=== PATIENT | male | born 1940 | race Caucasian/White ===

== ENCOUNTER 2019-01-09 19:56 | Inpatient (IN) ==
[2019-01-09] MEDS ORDERED: 0.9 % Sodium Chloride 1,000 ML IVC ONE (22:27)
[2019-01-09 22:28] LABS: Basophils # 0.1 K/mcL (0.0-0.2); Basophils % 0.3 %; Eosinophils # 0.1 K/mcL (0.0-0.6); Eosinophils % 0.6 %; Hemoglobin 9.3 g/dL (12.9-16.9); Immature Granulocytes % 0.5 % (0-4); Lymphocytes # 1.3 K/mcL (0.6-4.6); Lymphocytes % 8.3 %; Mean Corpuscular HGB Conc 33.2 g/dL (31.6-35.5); Mean Corpuscular Hemoglobin 32.7 pg (28.0-33.3); Mean Corpuscular Volume 98.6 fL (83.0-100.0); Mean Platelet Volume 12.4 fL (9.4-12.4); Monocytes # 1.9 K/mcL (0.0-1.3); Monocytes % 12.7 %; Neutrophils # 11.8 K/mcL (1.6-8.9); Platelet Count 208 K/mcL (140-400); Red Blood Count 2.84 M/mcL (4.19-5.50); Red Cell Distribution Width 17.4 % (11.5-14.5); Segmented Neutrophils % 77.6 %; White Blood Count 15.2 K/mcL (4.3-11.1)
[2019-01-09 22:35] LABS: Prothrombin Time 11.5 Seconds (9.4-12.1)
[2019-01-09 22:38] LABS: Activated Partial Thrombo Time 28.3 Seconds (26.0-36.0)
[2019-01-09 23:00] LABS: Alanine Aminotransferase 6 Units/L (7-52); Albumin 3.7 g/dL (3.5-5.7); Albumin/Globulin Ratio 1.2 (1.1-2.2); Alkaline Phosphatase 80 Units/L (34-104); Aspartate Amino Transferase 69 Units/L (13-39); BUN/Creatinine Ratio 23 (6-26); Bilirubin,Direct 0.1 mg/dL (0.0-0.2); Bilirubin,Indirect 0.3 mg/dL (0.0-1.2); Bilirubin,Total 0.4 mg/dL (0.3-1.0); Blood Urea Nitrogen 70 mg/dL (8-23); C-Reactive Protein 50 mg/L (Less than 10); Calcium 9.8 mg/dL (8.6-10.3); Carbon Dioxide 15 mEq/L (23-29); Chloride 103 mEq/L (98-107); Ethanol < 10 mg/dL (Less than 10); Globulin 3.1 g/dL (2.4-3.5); Glucose 85 mg/dL (70-105); Osmolality,Calculated 298 (280-300); Potassium 3.6 mEq/L (3.5-5.1); Sodium 134 mEq/L (136-145); Total Protein 6.8 g/dL (6.4-8.9); eGFR For African Americans 24 (> 60); eGFR For Non-African Americans 20 (> 60)
[2019-01-09] MEDS ORDERED: Aspirin 325 MG TABLET PO ONE (23:54)
[2019-01-10 00:01] LABS: Bilirubin,Urine Negative (Negative); Blood,Urine Large (Negative); Clarity,Urine Clear (Clear); Color,Urine Yellow (Yellow); Glucose,Urine (UA) Normal (Normal); Ketones,Urine Negative (Negative); Leukocyte Esterase,Urine Negative (Negative); Nitrite,Urine Negative (Negative); Protein,Urine 100 mg/dL (Neg-Trace); Specific Gravity,Urine 1.009 (1.010-1.025); Urobilinogen,Urine Normal (Normal)
[2019-01-10 00:02] LABS: Bacteria,Urine None Seen per hpf (None-Few); Hyaline Casts,Urine None Seen per lpf (None-Few); Squamous Epithelial Cell,Urine Few per lpf (None-Few); WBC,Urine 0-3 per hpf (0-3)
[2019-01-10] MEDS ORDERED: 0.9 % Sodium Chloride 1,000 ML IVC ONE (00:11)
[2019-01-10] MEDS ORDERED: *HR* LORazepam 2 MG/ML VIAL IVP ONE (00:11)
[2019-01-10 01:16] LABS: Amphetamine Screen,Urine Negative ng/mL (Cutoff=1000); Barbiturate Screen,Urine Negative ng/mL (Cutoff=200); Benzodiazepines Screen,Urine Negative ng/mL (Cutoff=200); Cannabinoid Screen,Urine Negative ng/mL (Cutoff = 50); Cocaine Screen,Urine Negative ng/mL (Cutoff= 300); Opiate Screen,Urine Negative ng/mL (Cutoff=300); Phencyclidine Screen,Urine Negative ng/mL (Cutoff=25)
[2019-01-10] MEDS ORDERED: Vancomycin (wt based) 1,000 MG VIAL IV ONE (02:20)
[2019-01-10] MEDS ORDERED: cefTRIAXone 1,000 MG in Water for inj. (sterile) 10 ML IVP ONE (02:20)
[2019-01-10] MEDS ORDERED: Acyclovir 550 MG in D5% in Water 100 ML IVPB ONE (02:21)
[2019-01-10] MEDS ORDERED: Acyclovir 600 MG in D5% in Water 100 ML IVPB ONE (02:30)
[2019-01-10] MEDS ORDERED: 0.9 % Sodium Chloride 1,000 ML IVC SCH (05:45)
[2019-01-10 08:53] LABS: Basophils % 0.2 %; Eosinophils # 0.2 K/mcL (0.0-0.6); Eosinophils % 1.6 %; Hematocrit 25.5 % (37.5-50.1); Hemoglobin 8.2 g/dL (12.9-16.9); Immature Granulocytes % 0.5 % (0-4); Lymphocytes # 1.1 K/mcL (0.6-4.6); Lymphocytes % 8.8 %; Mean Corpuscular HGB Conc 32.2 g/dL (31.6-35.5); Mean Corpuscular Hemoglobin 32.3 pg (28.0-33.3); Mean Corpuscular Volume 100.4 fL (83.0-100.0); Mean Platelet Volume 12.3 fL (9.4-12.4); Monocytes # 1.8 K/mcL (0.0-1.3); Monocytes % 14.1 %; Neutrophils # 9.6 K/mcL (1.6-8.9); Platelet Count 187 K/mcL (140-400); Red Blood Count 2.54 M/mcL (4.19-5.50); Red Cell Distribution Width 17.5 % (11.5-14.5); Segmented Neutrophils % 74.8 %; White Blood Count 12.9 K/mcL (4.3-11.1)
[2019-01-10] MEDS ORDERED: Naloxone 0.4 MG/ML INJ IVP PRN (09:00)
[2019-01-10] MEDS ORDERED: DARBEPOETIN ALFA IN POLYSORBAT IJ SCH (09:15)
[2019-01-10] MEDS ORDERED: *HR* Metoprolol 5 MG/5 ML VIAL IVP PRN (09:19)
[2019-01-10 09:20] LABS: Magnesium 1.9 mg/dL (1.6-2.6); Phosphorous 3.3 mg/dL (2.7-4.5); Potassium 3.3 mEq/L (3.5-5.1); Troponin I 0.64 ng/mL (< 0.04)
[2019-01-10 10:06] LABS: Estimated Average Glucose 134 mg/dl
[2019-01-10] MEDS ORDERED: *HR* Heparin 5,000 UNIT/ML VIAL IVP ONE (10:26)
[2019-01-10] MEDS ORDERED: *HR* Heparin 5,000 UNIT/ML VIAL IVP PRN ×2 (10:26)
[2019-01-10] MEDS ORDERED: Heparin 25,000 UNIT/250 ML D5W 25,000 UNIT/250 ML IV.SOLN IVC SCH (10:30)
[2019-01-10 10:57] LABS: Hematocrit 25.4 % (37.5-50.1); Hemoglobin 8.2 g/dL (12.9-16.9); Mean Corpuscular HGB Conc 32.3 g/dL (31.6-35.5); Mean Corpuscular Hemoglobin 32.7 pg (28.0-33.3); Mean Corpuscular Volume 101.2 fL (83.0-100.0); Mean Platelet Volume 12.5 fL (9.4-12.4); Platelet Count 187 K/mcL (140-400); Red Blood Count 2.51 M/mcL (4.19-5.50); Red Cell Distribution Width 17.4 % (11.5-14.5); White Blood Count 12.9 K/mcL (4.3-11.1)
[2019-01-10 11:07] LABS: Heparin anti-factor XA UFH 0.04 IU/mL (0.30-0.70)
[2019-01-10 11:08] LABS: Prothrombin Time 11.3 Seconds (9.4-12.1)
[2019-01-10] MEDS: Thiamine (B-1) 100 MG TABLET PO SCH (12:08)
[2019-01-10] MEDS: hydrALAZINE 25 MG TABLET PO SCH ×2 (12:24→18:22)
[2019-01-10] MEDS ORDERED: Acyclovir 600 MG in D5% in Water 100 ML IVPB SCH (13:00)
[2019-01-10] MEDS ORDERED: Haloperidol Lactate 5 MG/ML VIAL IM ONE (14:38)
[2019-01-10] MEDS: 0.9 % Sodium Chloride 1,000 ML IVC SCH (18:22)
[2019-01-10] MEDS: Budesonide/Formoterol 80/4.5 1 PUFF INH IH SCH (20:04)
[2019-01-10 20:32] LABS: Basophils % 0.3 %; Eosinophils # 0.2 K/mcL (0.0-0.6); Eosinophils % 1.7 %; Hemoglobin 7.8 g/dL (12.9-16.9); Immature Granulocytes % 0.6 % (0-4); Lymphocytes % 8.2 %; Mean Corpuscular HGB Conc 32.5 g/dL (31.6-35.5); Mean Corpuscular Hemoglobin 33.6 pg (28.0-33.3); Mean Corpuscular Volume 103.4 fL (83.0-100.0); Mean Platelet Volume 12.8 fL (9.4-12.4); Monocytes # 1.6 K/mcL (0.0-1.3); Neutrophils # 9.3 K/mcL (1.6-8.9); Platelet Count 172 K/mcL (140-400); Red Blood Count 2.32 M/mcL (4.19-5.50); Red Cell Distribution Width 17.8 % (11.5-14.5); Segmented Neutrophils % 76.2 %; White Blood Count 12.3 K/mcL (4.3-11.1)
[2019-01-10 20:59] LABS: Adenovirus Not Detected (Not Detect); Bordetella Pertussis Not Detected (Not Detect); Chlamydophila pneumoniae Not Detected (Not Detect); Coronavirus 229E Not Detected (Not Detect); Coronavirus HKU1 Not Detected (Not Detect); Coronavirus NL63 Not Detected (Not Detect); Coronavirus OC43 Not Detected (Not Detect); Human Metapneumovirus Not Detected (Not Detect); Human Rhinovirus/Enterovirus Not Detected (Not Detect); Influenza A Subtype 2009 H1 Not Detected (Not Detect); Influenza A Untypeable Not Detected (Not Detect); Influenza B Not Detected (Not Detect); Mycoplasma pneumoniae Not Detected (Not Detect); Parainfluenza Virus 1 Not Detected (Not Detect); Parainfluenza Virus 2 Not Detected (Not Detect); Parainfluenza Virus 3 Not Detected (Not Detect); Parainfluenza Virus 4 Not Detected (Not Detect); Respiratory Syncytial Virus Not Detected (Not Detect)
[2019-01-10] MEDS: Aspirin Enteric Coated 81 MG Tablet PO SCH (21:53)
[2019-01-11 04:08] LABS: White Blood Count 12.5 K/mcL (4.3-11.1)
[2019-01-11 04:09] LABS: Albumin 2.9 g/dL (3.5-5.7); Albumin/Globulin Ratio 1.1 (1.1-2.2); Basophils # 0.1 K/mcL (0.0-0.2); Basophils % 0.4 %; Bilirubin,Total 0.4 mg/dL (0.3-1.0); Calcium 8.9 mg/dL (8.6-10.3); Chol/HDL Ratio 2.9 (0-4.9); Eosinophils # 0.2 K/mcL (0.0-0.6); Eosinophils % 1.7 %; Globulin 2.6 g/dL (2.4-3.5); Hemoglobin 7.6 g/dL (12.9-16.9); Immature Granulocytes % 0.4 % (0-4); Lymphocytes # 0.9 K/mcL (0.6-4.6); Lymphocytes % 7.4 %; Magnesium 1.7 mg/dL (1.6-2.6); Mean Corpuscular HGB Conc 31.7 g/dL (31.6-35.5); Mean Corpuscular Hemoglobin 32.2 pg (28.0-33.3); Mean Corpuscular Volume 101.7 fL (83.0-100.0); Mean Platelet Volume 12.9 fL (9.4-12.4); Monocytes # 1.3 K/mcL (0.0-1.3); Monocytes % 10.7 %; Neutrophils # 9.9 K/mcL (1.6-8.9); Phosphorous 3.3 mg/dL (2.7-4.5); Platelet Count 175 K/mcL (140-400); Red Blood Count 2.36 M/mcL (4.19-5.50); Red Cell Distribution Width 17.5 % (11.5-14.5); Segmented Neutrophils % 79.4 %; Total Protein 5.5 g/dL (6.4-8.9)
[2019-01-11 04:10] LABS: % Iron Saturation 14 % (20-55); Iron 28 mcg/dL (65-175); Transferrin 140 mg/dL (203-362)
[2019-01-11 04:19] LABS: INR 1.1; Prothrombin Time 12.7 Seconds (9.4-12.1)
[2019-01-11 04:31] LABS: Ferritin > 1500 ng/mL (20-250)
[2019-01-11] MEDS: hydrALAZINE 25 MG TABLET PO SCH ×2 (05:44→16:57)
[2019-01-11] MEDS: 0.9 % Sodium Chloride 1,000 ML IVC SCH ×2 (06:50→19:55)
[2019-01-11] MEDS: Budesonide/Formoterol 80/4.5 1 PUFF INH IH SCH ×2 (07:25→20:00)
[2019-01-11 08:56] LABS: Troponin I 1.3 ng/mL (< 0.04)
[2019-01-11] MEDS: amLODIPine 5 MG TABLET PO SCH (10:18)
[2019-01-11] MEDS: Thiamine (B-1) 100 MG TABLET PO SCH (10:18)
[2019-01-11 11:44] LABS: Basophils # 0.1 K/mcL (0.0-0.2); Basophils % 0.4 %; Eosinophils # 0.3 K/mcL (0.0-0.6); Eosinophils % 2.2 %; Hematocrit 27.9 % (37.5-50.1); Hemoglobin 8.9 g/dL (12.9-16.9); Immature Granulocytes % 0.6 % (0-4); Lymphocytes # 1.2 K/mcL (0.6-4.6); Lymphocytes % 8.8 %; Mean Corpuscular HGB Conc 31.9 g/dL (31.6-35.5); Mean Corpuscular Hemoglobin 32.2 pg (28.0-33.3); Mean Corpuscular Volume 101.1 fL (83.0-100.0); Mean Platelet Volume 12.5 fL (9.4-12.4); Monocytes # 1.4 K/mcL (0.0-1.3); Monocytes % 10.2 %; Neutrophils # 10.6 K/mcL (1.6-8.9); Platelet Count 190 K/mcL (140-400); Red Blood Count 2.76 M/mcL (4.19-5.50); Red Cell Distribution Width 18.1 % (11.5-14.5); Segmented Neutrophils % 77.8 %; White Blood Count 13.6 K/mcL (4.3-11.1)
[2019-01-11] MEDS ORDERED: Acyclovir 600 MG in D5% in Water 100 ML IVPB SCH (14:00)
[2019-01-11] MEDS: *HR* Heparin 5,000 UNIT/ML VIAL SQ SCH (16:58)
[2019-01-11] MEDS: Aspirin Enteric Coated 81 MG Tablet PO SCH (19:54)
[2019-01-12 02:52] LABS: Basophils % 0.2 %; Eosinophils # 0.3 K/mcL (0.0-0.6); Eosinophils % 2.7 %; Hematocrit 22.6 % (37.5-50.1); Immature Granulocytes % 0.6 % (0-4); Lymphocytes # 1.5 K/mcL (0.6-4.6); Lymphocytes % 11.9 %; Mean Corpuscular HGB Conc 31.9 g/dL (31.6-35.5); Mean Corpuscular Hemoglobin 32.3 pg (28.0-33.3); Mean Corpuscular Volume 101.3 fL (83.0-100.0); Mean Platelet Volume 13.1 fL (9.4-12.4); Monocytes # 1.5 K/mcL (0.0-1.3); Monocytes % 11.7 %; Neutrophils # 9.3 K/mcL (1.6-8.9); Platelet Count 161 K/mcL (140-400); Red Blood Count 2.23 M/mcL (4.19-5.50); Red Cell Distribution Width 17.4 % (11.5-14.5); Segmented Neutrophils % 72.9 %; White Blood Count 12.7 K/mcL (4.3-11.1)
[2019-01-12 03:04] LABS: Hemoglobin 7.2 g/dL (12.9-16.9)
[2019-01-12 03:10] LABS: Calcium 8.8 mg/dL (8.6-10.3); Potassium 3.6 mEq/L (3.5-5.1)
[2019-01-12] MEDS: hydrALAZINE 25 MG TABLET PO SCH ×2 (05:31→17:10)
[2019-01-12] MEDS: *HR* Heparin 5,000 UNIT/ML VIAL SQ SCH ×2 (05:31→17:09)
[2019-01-12] MEDS: Budesonide/Formoterol 80/4.5 1 PUFF INH IH SCH ×2 (07:22→20:17)
[2019-01-12] MEDS: Thiamine (B-1) 100 MG TABLET PO SCH (08:46)
[2019-01-12] MEDS: amLODIPine 5 MG TABLET PO SCH (08:48)
[2019-01-12] MEDS: 0.9 % Sodium Chloride 1,000 ML IVC SCH (10:06)
[2019-01-12] MEDS ORDERED: 0.9 % Sodium Chloride 1,000 ML IVC SCH (10:10)
[2019-01-12 11:03] LABS: Hematocrit 25.9 % (37.5-50.1); Hemoglobin 8.2 g/dL (12.9-16.9)
[2019-01-12] MEDS: Aspirin Enteric Coated 81 MG Tablet PO SCH (19:43)
[2019-01-13 05:01] LABS: Basophils % 0.4 %; Eosinophils # 0.5 K/mcL (0.0-0.6); Eosinophils % 4.6 %; Hematocrit 25.6 % (37.5-50.1); Hemoglobin 8.1 g/dL (12.9-16.9); Immature Granulocytes % 0.6 % (0-4); Lymphocytes # 1.6 K/mcL (0.6-4.6); Mean Corpuscular HGB Conc 31.6 g/dL (31.6-35.5); Mean Corpuscular Volume 101.2 fL (83.0-100.0); Mean Platelet Volume 12.9 fL (9.4-12.4); Monocytes # 1.2 K/mcL (0.0-1.3); Monocytes % 10.2 %; Nucleated Red Blood Cells 0.2 /100 WBC (0); Platelet Count 181 K/mcL (140-400); Red Blood Count 2.53 M/mcL (4.19-5.50); Red Cell Distribution Width 17.6 % (11.5-14.5); Segmented Neutrophils % 70.2 %; White Blood Count 11.3 K/mcL (4.3-11.1)
[2019-01-13 05:17] LABS: Calcium 9.6 mg/dL (8.6-10.3); Potassium 3.4 mEq/L (3.5-5.1)
[2019-01-13] MEDS: hydrALAZINE 25 MG TABLET PO SCH (05:49)
[2019-01-13] MEDS: *HR* Heparin 5,000 UNIT/ML VIAL SQ SCH (05:49)
[2019-01-13] MEDS: Budesonide/Formoterol 80/4.5 1 PUFF INH IH SCH (07:31)
[2019-01-13] MEDS: amLODIPine 5 MG TABLET PO SCH (10:03)
[2019-01-13] MEDS: Thiamine (B-1) 100 MG TABLET PO SCH (10:04)
[2019-01-13 11:30] VITALS: BP 148/76
[2019-01-13] MEDS ORDERED: Darbepoetin 100 MCG/0.5 ML SYRINGE SQ ONE (14:00)
[2019-01-13] MEDS ORDERED: FLU Vac QV 19-20 (6Month+)/PF 0.5 ML SYRINGE IM ONE (15:00)
[2019-01-13] MEDS ORDERED: hydrALAZINE 25 MG TABLET PO SCH (18:00)
[2019-01-15 11:23] LABS: HIV-1&2 Antibody & p24 Ag Nonreactive (Nonreactive)
[2019-01-15 13:46] LABS: Hepatitis C Virus Antibody Reactive (Nonreactive)
== END 2019-01-13 15:16 | disposition home or self-care (01) | DRG 682 ==
LOC: EMEROOARM 19:56 → 2NENU 19:56 → SUATTDRO 01-10 06:12 → OBSVTOIN 01-10 06:12 → 2NENU 01-10 06:38
PROVIDERS: ADMIT Internal Medicine; ATTEND Internal Medicine

== ENCOUNTER 2019-09-15 11:16 | Inpatient (IN) ==
[2019-09-15] MEDS ORDERED: Naloxone 0.4 MG/ML INJ IVP PRN (12:58)
[2019-09-15] MEDS: 0.9 % Sodium Chloride 1,000 ML IVC SCH (13:21)
[2019-09-15 14:36] LABS: INR 0.9; Prothrombin Time 10.5 Seconds (9.4-12.1)
[2019-09-15 14:39] LABS: Activated Partial Thrombo Time 30.8 Seconds (26.0-36.0); Basophils # 0.1 K/mcL (0.0-0.2); Eosinophils # 0.4 K/mcL (0.0-0.6); Eosinophils % 4.6 %; Hematocrit 32.6 % (37.5-50.1); Immature Granulocytes % 0.7 % (0-4); Lymphocytes # 2.3 K/mcL (0.6-4.6); Lymphocytes % 25.2 %; Mean Corpuscular HGB Conc 30.7 g/dL (31.6-35.5); Mean Corpuscular Hemoglobin 31.2 pg (28.0-33.3); Mean Corpuscular Volume 101.6 fL (83.0-100.0); Mean Platelet Volume 12.9 fL (9.4-12.4); Monocytes # 0.9 K/mcL (0.0-1.3); Monocytes % 9.6 %; Neutrophils # 5.3 K/mcL (1.6-8.9); Nucleated Red Blood Cells 0.7 /100 WBC (0); Platelet Count 212 K/mcL (140-400); Red Blood Count 3.21 M/mcL (4.19-5.50); Red Cell Distribution Width 16.5 % (11.5-14.5); Segmented Neutrophils % 58.9 %; White Blood Count 9.1 K/mcL (4.3-11.1)
[2019-09-15 15:02] LABS: Potassium 4.3 mEq/L (3.5-5.1)
[2019-09-15] MEDS: hydrALAZINE 25 MG TABLET PO PRN (16:27)
[2019-09-15] MEDS: Budesonide/Formoterol 80/4.5 1 PUFF INH IH SCH (22:11)
[2019-09-16] MEDS: hydrALAZINE 25 MG TABLET PO PRN (00:22)
[2019-09-16] MEDS: 0.9 % Sodium Chloride 1,000 ML IVC SCH ×3 (02:45→23:10)
[2019-09-16] MEDS ORDERED: Acetaminophen IV 1,000 MG/100 ML INFUS..BTL ONE (06:57)
[2019-09-16] MEDS ORDERED: *HR* Vasopressin 20 UNIT/ML VIAL ONE (06:57)
[2019-09-16] MEDS ORDERED: Heparin 1,000 UNITS/500 mL 500 ML ONE (06:59)
[2019-09-16] MEDS ORDERED: *HR* FentaNYL (PF) 100 MCG/2 ML VIAL ONE ×6 (07:02→12:06)
[2019-09-16] MEDS ORDERED: Dexamethasone 4 MG/ML VIAL ONE (07:03)
[2019-09-16] MEDS ORDERED: *HR* Phenylephrine 10 MG/ML VIAL ONE (07:03)
[2019-09-16] MEDS ORDERED: Ondansetron 4 MG/2 ML VIAL ONE (07:03)
[2019-09-16] MEDS ORDERED: *HR* Rocuronium Bromide 50 MG/5 ML VIAL ONE ×2 (07:03→10:07)
[2019-09-16] MEDS ORDERED: *HR* Propofol 200 MG/20 ML VIAL IVP ONE ×2 (07:03→12:12)
[2019-09-16] MEDS ORDERED: Lidocaine -MPF 2% 2 ML VIAL ONE (07:03)
[2019-09-16] MEDS ORDERED: Isovue-300 50ML VIAL ONE (07:16)
[2019-09-16] MEDS ORDERED: Vancomycin 1,000 MG VIAL ONE (07:16)
[2019-09-16] MEDS ORDERED: Heparin 1,000 UNITS/500 mL 1,500 ML ONE (07:16)
[2019-09-16] MEDS ORDERED: *HR* Succinylcholine 200 MG/10 ML VIAL IVP ONE (07:29)
[2019-09-16] MEDS ORDERED: *HR* Labetalol 20 MG/4 ML SYRINGE IVP PRN ×2 (07:33→13:31)
[2019-09-16] MEDS ORDERED: *HR* Promethazine 25 MG/ML VIAL IVP PRN ×2 (07:33→13:31)
[2019-09-16] MEDS ORDERED: *HR* HYDROmorphone PF 0.5 MG/0.5 ML SYRINGE IVP PRN ×2 (07:33→13:31)
[2019-09-16] MEDS ORDERED: Heparin 1,000 UNITS/500 mL 0 ML ONE (07:33)
[2019-09-16] MEDS ORDERED: *HR* OxyCODONE Immed Rel 5 MG TABLET PO PRN ×2 (07:33→13:31)
[2019-09-16] MEDS ORDERED: Ondansetron 4 MG/2 ML VIAL IVP ONE ×2 (07:33→13:31)
[2019-09-16] MEDS ORDERED: CeFAZolin 2 GM/120 ML BAG IVPB ONE (08:54)
[2019-09-16] MEDS ORDERED: Aspirin 81 MG TAB.CHEW PO SCH (09:00)
[2019-09-16] MEDS ORDERED: Finasteride 5 MG TABLET PO SCH (09:00)
[2019-09-16] MEDS ORDERED: calcitrioL 0.25 MCG CAPSULE PO SCH (09:00)
[2019-09-16] MEDS ORDERED: Isosorbide MONOnitrate (24 HR) 30 MG TAB.ER.24H PO SCH (09:00)
[2019-09-16] MEDS ORDERED: *HR* Heparin 5,000 UNIT/ML VIAL ONE ×2 (09:27→10:56)
[2019-09-16] MEDS ORDERED: EPHEDrine 50 MG/ML VIAL ONE (09:49)
[2019-09-16] MEDS ORDERED: Protamine Sulfate 50 MG/5 ML VIAL IVP ONE (10:03)
[2019-09-16] MEDS ORDERED: NiCARdipine 2.5 MG/10 ML Syringe IVPB ONE (10:37)
[2019-09-16] MEDS: Budesonide/Formoterol 80/4.5 1 PUFF INH IH SCH ×2 (11:20→19:59)
[2019-09-16] MEDS ORDERED: hydrALAZINE 25 MG TABLET PO PRN (13:31)
[2019-09-16] MEDS ORDERED: Ondansetron 4 MG/2 ML VIAL IVP PRN (13:31)
[2019-09-16] MEDS ORDERED: 0.9 % Sodium Chloride 1,000 ML IVC SCH (13:31)
[2019-09-16] MEDS ORDERED: Acetaminophen 325 MG TABLET PO PRN (13:31)
[2019-09-16] MEDS ORDERED: Naloxone 0.4 MG/ML INJ IVP PRN ×2 (13:31)
[2019-09-16] MEDS: CeFAZolin 2 GM/120 ML BAG IVPB SCH (16:05)
[2019-09-16] MEDS: *HR* HYDROcodone/Acet 5/325 mg TABLET PO PRN (17:37)
[2019-09-16] MEDS ORDERED: Acetaminophen IV 1,000 MG/100 ML INFUS..BTL IVPB ONE (22:00)
[2019-09-17] MEDS: CeFAZolin 2 GM/120 ML BAG IVPB SCH ×2 (00:50→07:33)
[2019-09-17] MEDS ORDERED: hydrOXYzine pamoate 25 MG CAPSULE PO ONE (03:36)
[2019-09-17 04:21] LABS: Basophils % 0.2 %; Eosinophils % 0.1 %; Hematocrit 25.4 % (37.5-50.1); Hemoglobin 7.9 g/dL (12.9-16.9); Immature Granulocytes % 0.6 % (0-4); Lymphocytes # 1.8 K/mcL (0.6-4.6); Lymphocytes % 14.2 %; Mean Corpuscular HGB Conc 31.1 g/dL (31.6-35.5); Mean Corpuscular Hemoglobin 32.1 pg (28.0-33.3); Mean Corpuscular Volume 103.3 fL (83.0-100.0); Monocytes # 1.6 K/mcL (0.0-1.3); Monocytes % 12.5 %; Neutrophils # 9.4 K/mcL (1.6-8.9); Nucleated Red Blood Cells 1.6 /100 WBC (0); Platelet Count 196 K/mcL (140-400); Red Blood Count 2.46 M/mcL (4.19-5.50); Red Cell Distribution Width 16.6 % (11.5-14.5); Segmented Neutrophils % 72.4 %
[2019-09-17 04:42] LABS: Potassium 4.7 mEq/L (3.5-5.1)
[2019-09-17] MEDS: calcitrioL 0.25 MCG CAPSULE PO SCH (07:31)
[2019-09-17] MEDS: Isosorbide MONOnitrate (24 HR) 30 MG TAB.ER.24H PO SCH (07:32)
[2019-09-17] MEDS: Finasteride 5 MG TABLET PO SCH (07:32)
[2019-09-17] MEDS: Aspirin 81 MG TAB.CHEW PO SCH (07:32)
[2019-09-17] MEDS: Budesonide/Formoterol 80/4.5 1 PUFF INH IH SCH ×2 (10:37→19:58)
[2019-09-17] MEDS: 0.9 % Sodium Chloride 1,000 ML IVC SCH (13:37)
[2019-09-17] MEDS: *HR* HYDROcodone/Acet 5/325 mg TABLET PO PRN (21:43)
[2019-09-18] MEDS ORDERED: Acetaminophen IV 1,000 MG/100 ML INFUS..BTL IVPB ONE (00:05)
[2019-09-18] MEDS ORDERED: hydrOXYzine pamoate 25 MG CAPSULE PO ONE (00:07)
[2019-09-18 03:10] LABS: Calcium 8.1 mg/dL (8.6-10.3); Potassium 3.8 mEq/L (3.5-5.1)
[2019-09-18] MEDS: Aspirin 81 MG TAB.CHEW PO SCH (07:15)
[2019-09-18] MEDS: calcitrioL 0.25 MCG CAPSULE PO SCH (07:15)
[2019-09-18] MEDS: Isosorbide MONOnitrate (24 HR) 30 MG TAB.ER.24H PO SCH (07:16)
[2019-09-18] MEDS: Finasteride 5 MG TABLET PO SCH (07:16)
[2019-09-18] MEDS: Budesonide/Formoterol 80/4.5 1 PUFF INH IH SCH ×2 (08:00→20:17)
[2019-09-18] MEDS: 0.9 % Sodium Chloride 1,000 ML IVC SCH (08:13)
[2019-09-18] MEDS ORDERED: polyethylene glycoL 3350 17 GM POWD.PACK PO PRN (10:21)
[2019-09-18 11:17] LABS: Bilirubin,Urine Negative (Negative); Blood,Urine Negative (Negative); Clarity,Urine Clear (Clear); Color,Urine Yellow (Yellow); Glucose,Urine (UA) 100 mg/dL (Normal); Ketones,Urine Negative (Negative); Leukocyte Esterase,Urine Negative (Negative); Nitrite,Urine Negative (Negative); Protein,Urine >=300 mg/dL (Neg-Trace); Specific Gravity,Urine 1.012 (1.010-1.025); Urobilinogen,Urine Normal (Normal)
[2019-09-18 11:20] LABS: Sodium, Urine 17.5 mEq/L
[2019-09-18 11:29] LABS: Bacteria,Urine None Seen per hpf (None-Few); Hyaline Casts,Urine None Seen per lpf (None-Few); RBC,Urine 0-3 per hpf (0-3); Squamous Epithelial Cell,Urine Many per lpf (None-Few); WBC,Urine 0-3 per hpf (0-3)
[2019-09-18 11:44] LABS: Basophils % 0.2 %; Eosinophils % 0.1 %; Hematocrit 26.2 % (37.5-50.1); Hemoglobin 8.2 g/dL (12.9-16.9); Immature Granulocytes % 0.8 % (0-4); Lymphocytes # 1.3 K/mcL (0.6-4.6); Lymphocytes % 6.3 %; Mean Corpuscular HGB Conc 31.3 g/dL (31.6-35.5); Mean Corpuscular Hemoglobin 32.4 pg (28.0-33.3); Mean Corpuscular Volume 103.6 fL (83.0-100.0); Mean Platelet Volume 12.9 fL (9.4-12.4); Monocytes # 1.8 K/mcL (0.0-1.3); Monocytes % 8.7 %; Nucleated Red Blood Cells 3.3 /100 WBC (0); Platelet Count 199 K/mcL (140-400); Red Blood Count 2.53 M/mcL (4.19-5.50); Red Cell Distribution Width 17.7 % (11.5-14.5); Segmented Neutrophils % 83.9 %
[2019-09-18 11:45] LABS: White Blood Count 20.2 K/mcL (4.3-11.1)
[2019-09-18] MEDS: *HR* HYDROcodone/Acet 5/325 mg TABLET PO PRN (13:48)
[2019-09-18] MEDS: Folic Acid 1 MG TABLET PO SCH (17:28)
[2019-09-18] MEDS: Thiamine (B-1) 100 MG TABLET PO SCH (17:28)
[2019-09-18] MEDS: *HR* LORazepam 2 MG/ML VIAL IVP PRN ×2 (17:28→18:39)
[2019-09-19] MEDS: 0.9 % Sodium Chloride 1,000 ML IVC SCH (03:26)
[2019-09-19 06:23] LABS: Hematocrit 25.1 % (37.5-50.1); Hemoglobin 7.7 g/dL (12.9-16.9); Mean Corpuscular HGB Conc 30.7 g/dL (31.6-35.5); Mean Corpuscular Hemoglobin 31.3 pg (28.0-33.3); Mean Platelet Volume 12.5 fL (9.4-12.4); Platelet Count 210 K/mcL (140-400); Red Blood Count 2.46 M/mcL (4.19-5.50); Red Cell Distribution Width 17.6 % (11.5-14.5); White Blood Count 16.6 K/mcL (4.3-11.1)
[2019-09-19 06:37] LABS: Calcium 8.7 mg/dL (8.6-10.3); Potassium 3.9 mEq/L (3.5-5.1)
[2019-09-19] MEDS: Folic Acid 1 MG TABLET PO SCH (07:41)
[2019-09-19] MEDS: Thiamine (B-1) 100 MG TABLET PO SCH (07:41)
[2019-09-19] MEDS: calcitrioL 0.25 MCG CAPSULE PO SCH (07:41)
[2019-09-19] MEDS: Aspirin 81 MG TAB.CHEW PO SCH (07:41)
[2019-09-19] MEDS: Finasteride 5 MG TABLET PO SCH (07:41)
[2019-09-19] MEDS: Isosorbide MONOnitrate (24 HR) 30 MG TAB.ER.24H PO SCH (07:41)
[2019-09-19] MEDS: Budesonide/Formoterol 80/4.5 1 PUFF INH IH SCH (08:01)
[2019-09-19 16:40] VITALS: BP 162/95
== END 2019-09-19 18:17 | DRG 253 ==
LOC: 2NNU
PROVIDERS: ADMIT Surgery Vascular Surgery; ATTEND Surgery Vascular Surgery

== ENCOUNTER 2020-11-18 17:34 | Observation (INO) ==
[2020-11-18 19:00] LABS: Basophils # 0.1 K/mcL (0.0-0.2); Basophils % 0.8 %; Eosinophils # 0.9 K/mcL (0.0-0.6); Eosinophils % 8.7 %; Hematocrit 28.2 % (37.5-50.1); Hemoglobin 9.1 g/dL (12.9-16.9); Immature Granulocytes % 0.4 % (0-4); Lymphocytes # 2.2 K/mcL (0.6-4.6); Lymphocytes % 22.3 %; Mean Corpuscular HGB Conc 32.3 g/dL (31.6-35.5); Mean Corpuscular Hemoglobin 31.6 pg (28.0-33.3); Mean Corpuscular Volume 97.9 fL (83.0-100.0); Mean Platelet Volume 12.7 fL (9.4-12.4); Neutrophils # 5.8 K/mcL (1.6-8.9); Platelet Count 199 K/mcL (140-400); Red Blood Count 2.88 M/mcL (4.19-5.50); Red Cell Distribution Width 17.1 % (11.5-14.5); Segmented Neutrophils % 57.8 %
[2020-11-18 19:20] LABS: BUN/Creatinine Ratio 17 (6-26); Blood Urea Nitrogen 69 mg/dL (8-23); Calcium 11.5 mg/dL (8.6-10.3); Carbon Dioxide 21 mEq/L (23-29); Chloride 106 mEq/L (98-107); Glucose 93 mg/dL (70-105); Osmolality,Calculated 302 (280-300); Potassium 4.8 mEq/L (3.5-5.1); Sodium 136 mEq/L (136-145); Troponin I < 0.03 ng/mL (< 0.04); eGFR For African Americans 17 (> 60); eGFR For Non-African Americans 14 (> 60)
[2020-11-18 19:35] LABS: Activated Partial Thrombo Time 25.8 Seconds (26.0-36.0)
[2020-11-18] MEDS ORDERED: Aspirin 325 MG TABLET PO ONE ×2 (20:37→20:56)
[2020-11-18] MEDS ORDERED: Aspirin 81 MG TAB.CHEW PO ONE (21:05)
[2020-11-19] MEDS ORDERED: Perflutren Lipid Microsphere 1.3 ML in 0.9 % Sodium Chloride 8.7 ML IVP PRN (00:38)
[2020-11-19] MEDS ORDERED: Naloxone 0.4 MG/ML INJ IVP PRN (00:39)
[2020-11-19] MEDS ORDERED: Ondansetron 4 MG/2 ML VIAL IVP PRN (00:39)
[2020-11-19] MEDS ORDERED: Nitroglycerin 0.4 MG TAB.SUBL SL PRN (00:40)
[2020-11-19] MEDS ORDERED: Morphine Sulfate 2 MG/ML SYRINGE IVP PRN (00:41)
[2020-11-19 01:47] LABS: Amphetamine Screen,Urine Negative ng/mL (Cutoff=1000); Barbiturate Screen,Urine Negative ng/mL (Cutoff=200); Benzodiazepines Screen,Urine Negative ng/mL (Cutoff=200); Cannabinoid Screen,Urine Negative ng/mL (Cutoff = 50); Cocaine Screen,Urine Negative ng/mL (Cutoff= 300); Opiate Screen,Urine Negative ng/mL (Cutoff=300); Phencyclidine Screen,Urine Negative ng/mL (Cutoff=25)
[2020-11-19 01:58] LABS: Hematocrit 28.9 % (37.5-50.1); Hemoglobin 9.4 g/dL (12.9-16.9); Mean Corpuscular HGB Conc 32.5 g/dL (31.6-35.5); Mean Corpuscular Hemoglobin 31.6 pg (28.0-33.3); Mean Corpuscular Volume 97.3 fL (83.0-100.0); Mean Platelet Volume 12.5 fL (9.4-12.4); Platelet Count 204 K/mcL (140-400); Red Blood Count 2.97 M/mcL (4.19-5.50); Red Cell Distribution Width 17.2 % (11.5-14.5); White Blood Count 10.3 K/mcL (4.3-11.1)
[2020-11-19 02:16] LABS: BUN/Creatinine Ratio 17 (6-26); Blood Urea Nitrogen 70 mg/dL (8-23); Calcium 11.3 mg/dL (8.6-10.3); Carbon Dioxide 21 mEq/L (23-29); Chloride 106 mEq/L (98-107); Chol/HDL Ratio 3.1 (0-4.9); Cholesterol 129 mg/dL (< 200); Ethanol < 10 mg/dL (Less than 10); Glucose 104 mg/dL (70-105); HDL Cholesterol 42 mg/dL (40-59); LDL Cholesterol,Calculated 67 mg/dL (< 100); Magnesium 2.3 mg/dL (1.6-2.6); Osmolality,Calculated 307 (280-300); Potassium 4.2 mEq/L (3.5-5.1); Prothrombin Time 11.1 Seconds (9.4-12.1); Sodium 138 mEq/L (136-145); Triglycerides 100 mg/dL (< 150); eGFR For African Americans 17 (> 60); eGFR For Non-African Americans 14 (> 60)
[2020-11-19 02:19] LABS: Activated Partial Thrombo Time 26.2 Seconds (26.0-36.0)
[2020-11-19 02:22] LABS: % Iron Saturation 39 % (20-55); Iron 105 mcg/dL (65-175); Transferrin 194 mg/dL (203-362); Troponin I < 0.03 ng/mL (< 0.04)
[2020-11-19 02:34] LABS: Thyroid Stimulating Hormone 2.735 mcIU/mL (0.340-5.600)
[2020-11-19 02:39] LABS: Ferritin 885 ng/mL (20-250)
[2020-11-19 03:12] LABS: Folate > 22.3 ng/mL (3.0-16.0); Vitamin B12 764 pg/mL (250-1100)
[2020-11-19 04:02] LABS: Vitamin D 25 Hydroxy 30 ng/mL (30-80)
[2020-11-19] MEDS ORDERED: lisinopriL 5 MG TABLET PO ONE (04:52)
[2020-11-19] MEDS: *HR* Heparin 5,000 UNIT/ML VIAL SQ SCH ×2 (05:16→20:06)
[2020-11-19] MEDS ORDERED: Regadenoson 0.4 MG/5 ML SYRINGE IVP ONE (06:19)
[2020-11-19] MEDS: Multivit/Ca/Min/Fe/FA 1 TAB TABLET PO SCH (08:56)
[2020-11-19] MEDS: calcitrioL 0.25 MCG CAPSULE PO SCH (08:57)
[2020-11-19] MEDS: Aspirin Enteric Coated 81 MG Tablet PO SCH (08:57)
[2020-11-19] MEDS: Finasteride 5 MG TABLET PO SCH (08:57)
[2020-11-19] MEDS: Cholecalciferol (D-3) 1,000 UNIT (25MCG) TABLET PO SCH (08:57)
[2020-11-19] MEDS: hydrALAZINE 25 MG TABLET PO SCH ×3 (08:57→20:05)
[2020-11-19] MEDS ORDERED: Isosorbide MONOnitrate (24 HR) 30 MG TAB.ER.24H PO SCH (09:00)
[2020-11-19] MEDS: amLODIPine 5 MG TABLET PO SCH (10:16)
[2020-11-19] MEDS ORDERED: Acetaminophen 325 MG TABLET PO PRN (10:31)
[2020-11-19] MEDS: Budesonide/Formoterol 80/4.5 1 PUFF INH IH SCH ×2 (10:33→21:51)
[2020-11-19] MEDS: Ranolazine 500 MG TAB.ER.12H PO SCH ×2 (14:42→20:06)
[2020-11-19] MEDS ORDERED: Darbepoetin 100 MCG/0.5 ML SYRINGE SQ SCH (15:45)
[2020-11-19] MEDS: 0.9 % Sodium Chloride 1,000 ML IVC SCH (16:47)
[2020-11-20 00:09] LABS: Bilirubin,Urine Negative (Negative); Blood,Urine Negative (Negative); Clarity,Urine Clear (Clear); Color,Urine Light-Yellow (Yellow); Glucose,Urine (UA) Normal (Normal); Ketones,Urine Negative (Negative); Leukocyte Esterase,Urine Negative (Negative); Nitrite,Urine Negative (Negative); PH,Urine 6.5 pH Units (5.0-8.0); Protein,Urine >=300 mg/dL (Neg-Trace); RBC,Urine 0-3 per hpf (0-3); Specific Gravity,Urine 1.011 (1.010-1.025); Squamous Epithelial Cell,Urine Few per hpf (None-Few); Urobilinogen,Urine Normal (Normal)
[2020-11-20 01:40] LABS: Creatinine,Urine 39 mg/dL; Microalbumin,Urine > 1350 mg/L; Sodium, Urine 72.6 mEq/L
[2020-11-20] MEDS: *HR* Heparin 5,000 UNIT/ML VIAL SQ SCH (06:47)
[2020-11-20] MEDS: Cholecalciferol (D-3) 1,000 UNIT (25MCG) TABLET PO SCH (08:08)
[2020-11-20] MEDS: Finasteride 5 MG TABLET PO SCH (08:08)
[2020-11-20] MEDS: hydrALAZINE 25 MG TABLET PO SCH (08:09)
[2020-11-20] MEDS: Aspirin Enteric Coated 81 MG Tablet PO SCH (08:09)
[2020-11-20] MEDS: calcitrioL 0.25 MCG CAPSULE PO SCH (08:10)
[2020-11-20] MEDS: amLODIPine 5 MG TABLET PO SCH (08:10)
[2020-11-20] MEDS: Multivit/Ca/Min/Fe/FA 1 TAB TABLET PO SCH (08:11)
[2020-11-20] MEDS: Ranolazine 500 MG TAB.ER.12H PO SCH (08:11)
[2020-11-20] MEDS ORDERED: Isosorbide MONOnitrate (24 HR) 30 MG TAB.ER.24H PO SCH (09:00)
[2020-11-20] MEDS: Budesonide/Formoterol 80/4.5 1 PUFF INH IH SCH (09:54)
[2020-11-20] MEDS: 0.9 % Sodium Chloride 1,000 ML IVC SCH (10:08)
[2020-11-20 11:13] VITALS: BP 138/59; PULSE 59; TEMP 98.3; O2SAT 95
[2020-11-20 11:58] LABS: Hematocrit 26.8 % (37.5-50.1); Hemoglobin 8.5 g/dL (12.9-16.9); Mean Corpuscular HGB Conc 31.7 g/dL (31.6-35.5); Mean Corpuscular Hemoglobin 31.4 pg (28.0-33.3); Mean Corpuscular Volume 98.9 fL (83.0-100.0); Mean Platelet Volume 12.8 fL (9.4-12.4); Platelet Count 189 K/mcL (140-400); Red Blood Count 2.71 M/mcL (4.19-5.50); Red Cell Distribution Width 17.2 % (11.5-14.5); White Blood Count 8.3 K/mcL (4.3-11.1)
[2020-11-20 11:59] LABS: Basophils # 0.1 K/mcL (0.0-0.2); Basophils % 0.9 %; Eosinophils # 0.4 K/mcL (0.0-0.6); Eosinophils % 5.4 %; Hematocrit 26.8 % (37.5-50.1); Hemoglobin 8.6 g/dL (12.9-16.9); Immature Granulocytes % 0.2 % (0-4); Lymphocytes # 1.7 K/mcL (0.6-4.6); Lymphocytes % 20.5 %; Mean Corpuscular HGB Conc 32.1 g/dL (31.6-35.5); Mean Corpuscular Hemoglobin 31.7 pg (28.0-33.3); Mean Corpuscular Volume 98.9 fL (83.0-100.0); Mean Platelet Volume 12.9 fL (9.4-12.4); Monocytes # 0.7 K/mcL (0.0-1.3); Monocytes % 8.7 %; Neutrophils # 5.2 K/mcL (1.6-8.9); Platelet Count 193 K/mcL (140-400); Red Blood Count 2.71 M/mcL (4.19-5.50); Red Cell Distribution Width 17.1 % (11.5-14.5); Segmented Neutrophils % 64.3 %; White Blood Count 8.1 K/mcL (4.3-11.1)
[2020-11-20 12:35] LABS: Uric Acid 7.4 mg/dL (2.3-7.6)
[2020-11-20 12:36] LABS: Calcium 10.2 mg/dL (8.6-10.3); Potassium 4.1 mEq/L (3.5-5.1)
[2020-11-20 14:40] LABS: Hepatitis B Core IgM Nonreactive (Nonreactive)
[2020-11-20 14:43] LABS: Hepatitis A Antibody IgM Nonreactive (Nonreactive)
[2020-11-20] MEDS ORDERED: 0.9 % Sodium Chloride 1,000 ML IVC SCH (16:00)
[2020-11-20 16:45] LABS: Hepatitis B Surface Antigen Nonreactive (Nonreactive)
[2020-11-20 19:40] LABS: Hepatitis C Virus Antibody Reactive (Nonreactive)
== END 2020-11-20 15:18 | disposition home or self-care (01) ==
LOC: EMEROOARM 17:34 → CDU 17:34
PROVIDERS: ADMIT Internal Medicine; ATTEND Internal Medicine

== ENCOUNTER 2020-12-31 20:00 | Inpatient (IN) ==
[2021-01-01] MEDS ORDERED: Isovue-370 500 ML BOTTLE IVP ONE (01:06)
[2021-01-01 01:56] LABS: Hematocrit 33.5 % (37.5-50.1); Hemoglobin 10.6 g/dL (12.9-16.9); Mean Corpuscular HGB Conc 31.6 g/dL (31.6-35.5); Mean Corpuscular Hemoglobin 31.9 pg (28.0-33.3); Mean Corpuscular Volume 100.9 fL (83.0-100.0); Mean Platelet Volume 11.6 fL (9.4-12.4); Platelet Count 235 K/mcL (140-400); Red Blood Count 3.32 M/mcL (4.19-5.50); White Blood Count 14.1 K/mcL (4.3-11.1)
[2021-01-01 02:16] LABS: INR 0.9; Prothrombin Time 10.5 Seconds (9.4-12.1)
[2021-01-01 02:19] LABS: Activated Partial Thrombo Time 27.3 Seconds (26.0-36.0)
[2021-01-01 02:22] LABS: Influenza A PCR Negative (Negative); Influenza B PCR Negative (Negative); Resp. Syncytial Virus PCR Negative (Negative)
[2021-01-01 02:22] LABS: Alanine Aminotransferase 39 Units/L (7-52); Albumin 3.8 g/dL (3.5-5.7); Albumin/Globulin Ratio 1.4 (1.1-2.2); Alkaline Phosphatase 72 Units/L (34-104); Aspartate Amino Transferase 44 Units/L (13-39); BUN/Creatinine Ratio 14 (6-26); Bilirubin,Direct 0.1 mg/dL (0.0-0.2); Bilirubin,Indirect 0.3 mg/dL (0.0-1.0); Bilirubin,Total 0.4 mg/dL (0.3-1.0); Blood Urea Nitrogen 67 mg/dL (8-23); Carbon Dioxide 18 mEq/L (23-29); Chloride 111 mEq/L (98-107); Creatine Kinase 1687 Units/L (30-223); Globulin 2.8 g/dL (2.4-3.5); Glucose 103 mg/dL (70-105); Osmolality,Calculated 312 (280-300); Sodium 141 mEq/L (136-145); Total Protein 6.6 g/dL (6.4-8.9); eGFR For African Americans 14 (> 60); eGFR For Non-African Americans 12 (> 60)
[2021-01-01 02:23] LABS: SARS-CoV-2 by PCR (In House) Negative (Negative)
[2021-01-01 02:53] LABS: Ethanol < 10 mg/dL (Less than 10)
[2021-01-01 03:00] LABS: Bilirubin,Urine Negative (Negative); Blood,Urine Small (Negative); Clarity,Urine Clear (Clear); Color,Urine Light-Yellow (Yellow); Glucose,Urine (UA) Normal (Normal); Ketones,Urine Negative (Negative); Leukocyte Esterase,Urine Negative (Negative); Nitrite,Urine Negative (Negative); Protein,Urine >=300 mg/dL (Neg-Trace); RBC,Urine 0-3 per hpf (0-3); Specific Gravity,Urine 1.018 (1.010-1.025); Urobilinogen,Urine Normal (Normal); WBC,Urine 0-3 per hpf (0-3)
[2021-01-01 03:04] LABS: Amphetamine Screen,Urine Negative ng/mL (Cutoff=1000); Barbiturate Screen,Urine Negative ng/mL (Cutoff=200); Benzodiazepines Screen,Urine Negative ng/mL (Cutoff=200); Cannabinoid Screen,Urine Negative ng/mL (Cutoff = 50); Cocaine Screen,Urine Negative ng/mL (Cutoff= 300); Opiate Screen,Urine Negative ng/mL (Cutoff=300); Phencyclidine Screen,Urine Negative ng/mL (Cutoff=25)
[2021-01-01] MEDS ORDERED: 0.9 % Sodium Chloride 500 ML IVC ONE (03:46)
[2021-01-01 05:54] LABS: Troponin I 0.39 ng/mL (< 0.04)
[2021-01-01] MEDS ORDERED: Ondansetron 4 MG/2 ML VIAL IVP PRN (06:06)
[2021-01-01] MEDS ORDERED: Naloxone 0.4 MG/ML INJ IVP PRN (06:06)
[2021-01-01] MEDS ORDERED: Perflutren Lipid Microsphere 1.3 ML in 0.9 % Sodium Chloride 8.7 ML IVP PRN (07:19)
[2021-01-01] MEDS: Aspirin 81 MG TAB.CHEW PO SCH ×2 (09:49→10:04)
[2021-01-01] MEDS: amLODIPine 5 MG TABLET PO SCH ×2 (09:50→10:05)
[2021-01-01] MEDS: Isosorbide MONOnitrate (24 HR) 30 MG TAB.ER.24H PO SCH ×2 (09:50→10:05)
[2021-01-01] MEDS: hydrALAZINE 25 MG TABLET PO SCH ×5 (09:50→21:59)
[2021-01-01] MEDS: 0.9 % Sodium Chloride 1,000 ML IVC SCH ×2 (09:50→20:11)
[2021-01-01 11:37] LABS: Chol/HDL Ratio 3.2 (0-4.9)
[2021-01-01 12:09] LABS: Estimated Average Glucose 111 mg/dl; Hemoglobin A1C 5.5 %
[2021-01-01 12:24] LABS: Folate > 22.3 ng/mL (3.0-16.0); Vitamin B12 1482 pg/mL (250-1100)
[2021-01-01] MEDS ORDERED: *HR* Metoprolol 5 MG/5 ML VIAL IVP ONE (20:28)
[2021-01-02] MEDS ORDERED: *HR* Labetalol 20 MG/4 ML SYRINGE IVP ONE (03:06)
[2021-01-02 04:09] LABS: Basophils % 0.1 %; Hematocrit 32.7 % (37.5-50.1); Hemoglobin 10.1 g/dL (12.9-16.9); Immature Granulocytes % 0.4 % (0-4); Lymphocytes # 0.7 K/mcL (0.6-4.6); Lymphocytes % 5.3 %; Mean Corpuscular HGB Conc 30.9 g/dL (31.6-35.5); Mean Corpuscular Hemoglobin 32.3 pg (28.0-33.3); Mean Corpuscular Volume 104.5 fL (83.0-100.0); Mean Platelet Volume 12.3 fL (9.4-12.4); Monocytes # 1.3 K/mcL (0.0-1.3); Monocytes % 9.5 %; Neutrophils # 11.6 K/mcL (1.6-8.9); Nucleated Red Blood Cells 0.6 /100 WBC (0); Platelet Count 225 K/mcL (140-400); Red Blood Count 3.13 M/mcL (4.19-5.50); Red Cell Distribution Width 21.2 % (11.5-14.5); Segmented Neutrophils % 84.7 %; White Blood Count 13.6 K/mcL (4.3-11.1)
[2021-01-02 04:13] LABS: Albumin 3.5 g/dL (3.5-5.7); Albumin/Globulin Ratio 1.3 (1.1-2.2); Bilirubin,Total 0.4 mg/dL (0.3-1.0); Calcium 10.6 mg/dL (8.6-10.3); Globulin 2.7 g/dL (2.4-3.5); Magnesium 2.7 mg/dL (1.6-2.6); Potassium 4.7 mEq/L (3.5-5.1); Total Protein 6.2 g/dL (6.4-8.9)
[2021-01-02 04:31] LABS: ABG Base Excess -13 mEq/L (-2 to 3); ABG HCO3 12 mEq/L (21-27); ABG Oxygen Saturation 93 % (95-98); ABG PCO2 24 mmHg (35-45); ABG PO2 72 mmHg (85-104); ABG TCO2 12 mEq/L (20-26)
[2021-01-02] MEDS: 0.9 % Sodium Chloride 1,000 ML IVC SCH (05:40)
[2021-01-02] MEDS: Aspirin 81 MG TAB.CHEW PO SCH (07:55)
[2021-01-02] MEDS: Isosorbide MONOnitrate (24 HR) 30 MG TAB.ER.24H PO SCH (07:55)
[2021-01-02] MEDS: amLODIPine 5 MG TABLET PO SCH (07:55)
[2021-01-02] MEDS: hydrALAZINE 25 MG TABLET PO SCH ×3 (07:55→20:34)
[2021-01-02] MEDS: Thiamine (B-1) 100 MG in 0.9 % Sodium Chloride 50 ML IVPB SCH ×3 (08:14→21:31)
[2021-01-02] MEDS ORDERED: amLODIPine 5 MG TABLET PO SCH (09:00)
[2021-01-02] MEDS ORDERED: Sodium Bicarbonate 75 MEQ in 0.45 % Sodium Chloride 1,000 ML IVC SCH ×2 (11:00→14:45)
[2021-01-02 11:49] LABS: Thyroid Stimulating Hormone 1.506 mcIU/mL (0.340-5.600)
[2021-01-02] MEDS: Sodium Bicarbonate 75 MEQ in 0.45 % Sodium Chloride 1,000 ML IVC SCH (16:08)
[2021-01-02] MEDS ORDERED: levoFLOXacin 500 MG/100 ML 500 MG/100 ML BAG IVPB SCH (18:00)
[2021-01-02] MEDS: *HR* Metoprolol 5 MG/5 ML VIAL IVP PRN (21:31)
[2021-01-02] MEDS ORDERED: Nitroglycerin 0.4 MG TAB.SUBL SL ONE (22:21)
[2021-01-02] MEDS ORDERED: Morphine Sulfate 2 MG/ML SYRINGE IVP ONE (22:22)
[2021-01-02] MEDS: Nitroglycerin 0.4 MG TAB.SUBL SL PRN (22:24)
[2021-01-02] MEDS ORDERED: Acetaminophen IV 500 MG/50 ML BAG IVPB ONE (22:35)
[2021-01-03 01:46] LABS: Basophils % 0.1 %; Hematocrit 31.4 % (37.5-50.1); Hemoglobin 10.2 g/dL (12.9-16.9); Immature Granulocytes % 0.4 % (0-4); Lymphocytes # 0.3 K/mcL (0.6-4.6); Lymphocytes % 1.5 %; Mean Corpuscular HGB Conc 32.5 g/dL (31.6-35.5); Mean Corpuscular Volume 101.6 fL (83.0-100.0); Mean Platelet Volume 12.6 fL (9.4-12.4); Monocytes # 1.1 K/mcL (0.0-1.3); Neutrophils # 17.5 K/mcL (1.6-8.9); Nucleated Red Blood Cells 0.3 /100 WBC (0); Platelet Count 204 K/mcL (140-400); Red Blood Count 3.09 M/mcL (4.19-5.50); Red Cell Distribution Width 21.5 % (11.5-14.5)
[2021-01-03 02:02] LABS: Calcium 9.8 mg/dL (8.6-10.3)
[2021-01-03 02:15] LABS: Anisocytosis 1+ (Not Present); Platelet Estimate Normal (Normal); Poikilocytosis 1+ (Not Present)
[2021-01-03] MEDS ORDERED: *HR* Labetalol 20 MG/4 ML SYRINGE IVP ONE (02:17)
[2021-01-03] MEDS: Sodium Bicarbonate 75 MEQ in 0.45 % Sodium Chloride 1,000 ML IVC SCH (02:31)
[2021-01-03 03:08] LABS: ABG Base Excess -10 mEq/L (-2 to 3); ABG HCO3 16 mEq/L (21-27); ABG Oxygen Saturation 89 % (95-98); ABG PCO2 34 mmHg (35-45); ABG PH 7.28 pH Units (7.32-7.45); ABG PO2 64 mmHg (85-104); ABG TCO2 17 mEq/L (20-26)
[2021-01-03] MEDS ORDERED: Scopolamine Patch 1.5 MG PATCH.TD72 TD ONE (03:10)
[2021-01-03] MEDS ORDERED: Atropine 1% Opth Drops 100 DROP/5 ML BOTTLE SL PRN (03:10)
[2021-01-03] MEDS: Levalbuterol Neb 1.25 MG/3 ML IH SCH ×4 (03:18→15:35)
[2021-01-03] MEDS: *HR* Metoprolol 5 MG/5 ML VIAL IVP PRN (03:40)
[2021-01-03] MEDS ORDERED: Cefepime HCl 1,000 MG in 0.9 % Sodium Chloride Mini Bag 100 ML IVPB ONE (04:00)
[2021-01-03] MEDS ORDERED: *HR* Heparin 5,000 UNIT/ML VIAL IVP ONE (05:38)
[2021-01-03] MEDS ORDERED: *HR* Heparin 5,000 UNIT/ML VIAL IVP PRN ×2 (05:38)
[2021-01-03] MEDS ORDERED: Heparin 25,000UNIT/250ML 1/2NS 25,000 UNIT/250 ML IV.SOLN IVC SCH (05:45)
[2021-01-03 06:39] LABS: Hematocrit 33.7 % (37.5-50.1); Hemoglobin 10.8 g/dL (12.9-16.9); Mean Corpuscular Hemoglobin 32.9 pg (28.0-33.3); Mean Corpuscular Volume 102.7 fL (83.0-100.0); Mean Platelet Volume 12.9 fL (9.4-12.4); Platelet Count 199 K/mcL (140-400); Red Blood Count 3.28 M/mcL (4.19-5.50); Red Cell Distribution Width 21.7 % (11.5-14.5); White Blood Count 17.5 K/mcL (4.3-11.1)
[2021-01-03 06:49] LABS: Heparin anti-factor XA UFH < 0.04 IU/mL (0.30-0.70)
[2021-01-03 06:50] LABS: INR 1.1; Prothrombin Time 11.8 Seconds (9.4-12.1)
[2021-01-03] MEDS ORDERED: *HR* Labetalol 20 MG/4 ML SYRINGE IVP PRN (07:39)
[2021-01-03] MEDS ORDERED: Piperacillin/Tazobactam 3.375 GM in 0.9 % Sodium Chloride Mini Bag 100 ML IVPB SCH (08:00)
[2021-01-03] MEDS: Nitroglycerin 0.4 MG TAB.SUBL SL PRN (09:00)
[2021-01-03] MEDS: Thiamine (B-1) 100 MG in 0.9 % Sodium Chloride 50 ML IVPB SCH (09:07)
[2021-01-03] MEDS: amLODIPine 5 MG TABLET PO SCH (09:14)
[2021-01-03] MEDS: Aspirin 81 MG TAB.CHEW PO SCH (09:15)
[2021-01-03] MEDS: hydrALAZINE 25 MG TABLET PO SCH (09:15)
[2021-01-03] MEDS: Isosorbide MONOnitrate (24 HR) 30 MG TAB.ER.24H PO SCH (09:15)
[2021-01-03] MEDS ORDERED: Morphine Sulfate 2 MG/ML SYRINGE IVP PRN (09:45)
[2021-01-03] MEDS ORDERED: Morphine Sulfate 2 MG/ML SYRINGE IVP ONE ×2 (11:06→12:51)
[2021-01-03] MEDS: *HR* LORazepam 2 MG/ML VIAL IVP PRN ×4 (14:38→22:00)
[2021-01-03] MEDS: Morphine Sulfate 2 MG/ML SYRINGE IVP PRN ×4 (14:38→22:00)
[2021-01-04] MEDS: *HR* LORazepam 2 MG/ML VIAL IVP PRN ×8 (00:05→13:26)
[2021-01-04] MEDS: Morphine Sulfate 2 MG/ML SYRINGE IVP PRN ×8 (00:06→13:27)
[2021-01-04] MEDS ORDERED: SODIUM CHLORIDE 0.9% IVPB SCH (06:00)
[2021-01-04] MEDS ORDERED: CEFEPIME HCL IVPB SCH (06:00)
[2021-01-04 07:37] VITALS: BP 171/78; PULSE 147; TEMP 103.1; O2SAT 86
[2021-01-04] MEDS ORDERED: Acetaminophen 650 MG RECTAL SUPP RC PRN (08:39)
[2021-01-04] MEDS ORDERED: Haloperidol Lactate 5 MG/ML VIAL IVP PRN (12:21)
[2021-01-04] MEDS ORDERED: Morphine Sulfate 2 MG/ML SYRINGE IVP ONE (12:23)
[2021-01-04] MEDS ORDERED: *HR* HYDROmorphone (PF) 1 MG/ML SYRINGE IVP ONE (13:54)
[2021-01-04] MEDS ORDERED: Acetaminophen IV 1,000 MG/100 ML BAG IVPB SCH (18:00)
== END 2021-01-04 14:24 | disposition expired | DRG 56 ==
LOC: EMEROOARM 20:00 → 3ANU 20:00 → 2ANU 01-01 05:55
PROVIDERS: ADMIT Internal Medicine; ATTEND Internal Medicine